=== PATIENT | male | born 1985 | race African-American/Black ===

== ENCOUNTER 2016-07-11 02:39 | Emergency (ER) | payer OTHER ==
[~2016-07-11] VITALS: Ht 180.3 cm; Wt 99.6 kg
[2016-07-11] MEDS ORDERED: LORAZEPAM 2 MG/ML 1 ML VIAL ONE (02:52)
[2016-07-11 03:21] LABS: ALT/SGPT 30 U/L (12-78); AST/SGOT 16 U/L (15-37); BLOOD UREA NITROGEN 9 mg/dl (7-18); BUN/CREATININE RATIO 6.3 (10-20); CARBON DIOXIDE 19 mmol/L (21-32); CHLORIDE 108 mmol/L (98-107); GLUCOSE 85 mg/dl (70-99); POTASSIUM 3.1 mmol/L (3.5-5.1); SODIUM 144 mmol/L (136-145)
[2016-07-11 03:32] LABS: ALKALINE PHOSPHATASE 73 U/L (45-117); THYROID STIMULATING HORMONE 0.753 uIu/ml (0.300-4.500)
[2016-07-11 03:36] LABS: ACETAMINOPHEN < 2 ug/ml (10-30)
[2016-07-11 03:43] LABS: BENZODIAZEPINE, URINE NEG (NEG); COCAINE,URINE POS (NEG); PHENCYCLIDINE, URINE NEG (NEG)
[2016-07-11 03:45] LABS: CKMB/CK RATIO 0.5 (0-3.0)
[2016-07-11 04:09] LABS: URINE APPEARANCE CLEAR (CLEAR); URINE BILIRUBIN NEG (NEG); URINE COLOR YELLOW; URINE NITRITE NEG (NEG); URINE SPECIFIC GRAVITY 1.003 (1.000-1.030); UROBILINOGEN NEG (NEG)
[2016-07-11] MEDS ORDERED: LORAZEPAM 2 MG/ML 1 ML VIAL IM STA (04:09)
[2016-07-11] MEDS ORDERED: HALOPERIDOL LACTATE 5 MG/ML 1 ML VIAL IM STA (04:09)
[2016-07-11 04:25] LABS: MANUAL MICROSCOPIC REQUIRED? NO; REVIEW REQ? NO
--- NOTE | 2016-07-11 04:27 | EMERGENCY ROOM VISIT NOTE ---
History Report prepared by Naga: Heather Daly Under the Supervision of: Dr. Jenna Lynne D.O. First contact with patient: 02:49 Chief Complaint: OVERDOSE (INTENTIONAL) Stated Complaint: OVERDOSE History of Present Illness The patient is a male who presents to the Emergency Room with complaints of an overdose that occurred prior to arrival. Per police, the patient was acting disorderly this evening and an [employer] van driver helper called police. As police started to approach the patient, the patient started walking towards them. The patient was told to stop and provide ID, but the patient started becoming more aggressive. The patient was tazed by police, but due to the thickness of his clothing, the prongs did not stick. Police were finally able to get the patient handcuffed and transported to the emergency department. Police note that they found a white substance and drug paraphernalia concerning for cocaine on the patient. The history is limited secondary to the patient's poor cooperation and intoxication. The patient received 2 mg of IM Ativan in the ambulance. Source of History: police History Limited By: poor cooperation, intoxication Onset: prior to arrival Position: other (global) Quality: other (overdose) Review of Systems The history is limited secondary to intoxication. Past Medical & Surgical Unobtainable secondary to intoxication. Family History Unobtainable secondary to intoxication. Social History Smoking Status: Unknown if Ever Smoked Alcohol Use: heavy Drug Use: cocaine Current/Historical Medications Unable to Obtain Active Prescriptions or Reported Meds Physical Exam Vital Signs Date Time Temp Pulse Resp B/P Pulse Ox O2 Delivery O2 Flow Rate FiO2 07/11/16 05:35 103 23 100 Room Air 07/11/16 05:33 106/67 07/11/16 05:05 98 19 94 07/11/16 05:00 132/89 07/11/16 04:35 101 20 93 07/11/16 04:30 103/63 07/11/16 04:20 105 20 93 Room Air 07/11/16 04:00 138/85 07/11/16 03:50 102 21 95 07/11/16 03:34 107 20 123/71 94 Room Air 07/11/16 03:34 123/71 07/11/16 03:30 181/115 07/11/16 03:20 119 26 07/11/16 03:15 122 15 07/11/16 03:03 142 07/11/16 03:00 159 27 112/90 07/11/16 03:00 138 30 112/90 100 Room Air 07/11/16 02:52 175/88 Physical Exam General: Extremely aggressive, threatening to harm staff. Screaming expletives. Spitting on staff. Attempting to bite staff. Diaphoretic. HEENT: Head - normocephalic and atraumatic Pupils are 4 mm and nonreactive. Nose - moist nasal mucosa without discharge. Mouth - moist buccal mucosa. Oropharynx is nonerythematous and there is no tonsillar exudate or edema noted. Neck: Supple; no JVD, nuchal rigidity, cervical lymphadenopathy. Heart: Tachycardic rate and regular rhythm. There is a normal S1 and S2 with no murmurs, clicks, or gallops appreciated. Lungs: Clear to auscultation bilaterally with no wheezes, rales, or rhonchi. Abdomen: Soft, completely nontender, nondistended, with good bowel sounds. There are no palpable pulsatile masses or hepatosplenomegaly. There is no guarding, rigidity, or rebound noted. Back: 2 prong jones on left low back from tazer. No active bleeding. Extremities: No evidence of cyanosis, clubbing, or edema. There are easily palpable peripheral pulses. Skin: warm and dry with good turgor and no rashes. , Medical Decision & Procedures Laboratory Results 07/11/16 02:52 Test 07/11/16 02:52 07/11/16 03:05 07/11/16 03:15 Anion Gap 17.0 mmol/L (3-11) Estimated GFR () 39.0 Estimated GFR (Non- 33.7 BUN/Creatinine Ratio 6.3 (10-20) Calcium Level 9.0 mg/dl (8.5-10.1) Total Bilirubin 0.3 mg/dl (0.2-1) Direct Bilirubin 0.1 mg/dl (0-0.2) Aspartate Amino Transf (AST/SGOT) 16 U/L (15-37) Alanine Aminotransferase (ALT/SGPT) 30 U/L (12-78) Alkaline Phosphatase 73 U/L (45-117) Total Creatine Kinase 474 U/L (39-308) Creatine Kinase MB 2.3 ng/ml (0.5-3.6) Creatine Kinase MB Ratio 0.5 (0-3.0) Troponin I < 0.015 ng/ml (0-0.045) Total Protein 8.3 gm/dl (6.4-8.2) Albumin 4.4 gm/dl (3.4-5.0) Thyroid Stimulating Hormone (TSH) 0.753 uIu/ml (0.300-4.500) Ethyl Alcohol mg/dL 193.0 mg/dl (0-3) Salicylates Level 2.8 mg/dl (2.8-20) Acetaminophen Level < 2 ug/ml (10-30) Urine Color YELLOW Urine Appearance CLEAR (CLEAR) Urine pH 6.0 (4.5-7.5) Urine Specific [place] 1.003 (1.000-1.030) Urine Protein NEG (NEG) Urine Glucose (UA) NEG (NEG) Urine Ketones NEG (NEG) Urine Occult Blood NEG (NEG) Urine Nitrite NEG (NEG) Urine Bilirubin NEG (NEG) Urine Urobilinogen NEG (NEG) Urine Leukocyte Esterase NEG (NEG) Urine Opiates Screen NEG (NEG) Urine Methadone, Qualitative NEG (NEG) Urine Barbiturates NEG (NEG) Urine Phencyclidine (PCP) Level NEG (NEG) Ur Amphetamine/Methamphetamine NEG (NEG) MDMA (Ecstasy) Screen NEG (NEG) Urine Benzodiazepines Screen NEG (NEG) Urine Cocaine Metabolite POS (NEG) Urine Marijuana (THC) NEG (NEG) Laboratory results per my review. Medications Administered Medications (Trade) Dose Ordered Sig/Clau Route Start Time Stop Time Status Last Admin Dose Admin Lorazepam (Ativan Inj) 2 mg STK-MED ONCE .ROUTE 07/11/16 02:52 07/11/16 02:55 DC 07/11/16 02:52 2 MG Haloperidol Lactate (Haldol Inj) 10 mg NOW STAT IM 07/11/16 04:09 07/11/16 04:10 DC 07/11/16 02:40 10 MG Lorazepam (Ativan Inj) 2 mg NOW STAT IM 07/11/16 04:09 07/11/16 04:10 DC 07/11/16 02:40 2 MG Procedure The patient was treated with Ativan Inj 2 mg .IM, Ativan Inj 2 mg IM, Haldol Inj 10 mg IM. ED Course 0241: Past medical records reviewed. The patient was evaluated in room A2. A complete history and physical exam was performed. The patient was being restrained by police and security staff. He was trying to bite one security guards and was screaming expletives. 0246: The patient was given 10 mg of Haldol IM and 2 mg of Ativan IM at this time. 0255: I reevaluated the patient at this time and the patient and he was still very aggressive. He was attempting to spit at me during my physical exam. He was given an additional 2 mg of Ativan IM. 0440: I reevaluated he patient and he is sound asleep and 204 limbs her out of restraints. He is hemodynamically stable. The patient will be discharged to the police when he is more sober around 0700. 0545: I reevaluated the patient and he is resting and hemodynamically stable. 0630: The patient will be discharged with police Medical Decision The patient is a 31 year old male who presents to the ED with an overdose. Differential diagnosis includes drug overdose, alcohol intoxication, excited delirium, hypoglycemia Lab interpretation: Potassium 3.1, BUN 9, Creatanine1.5, total Ck 474, CKMB 2.3 , negative troponin, normal TSH, alcohol 193, urine tox screen positive for cocaine, salicylate level 2.8, Tylenol level less than 2. This is a 31-year-old male patient presents to the emergency department in an altered, belligerent and aggressive state. He was found to be under the influence of alcohol and cocaine. He was observing the cardiac cath rn and pulse oximeter. He did require restraints with locked limbs and chemical restraints. The patient remained hemodynamically stable. The police are waiting for the patient to be discharged as they will take him into custody. The patient was told that his potassium level was slightly low and that he needs to take foods high in potassium. Impression Primary Impression: Alcohol overdose Additional Impressions: Cocaine abuse Hypokalemia Critical Care I have personally spent greater than 60 minutes of critical care time in the direct management of this patient. This includes bedside care, interpretation of diagnostic studies, and testing, discussion with consultants, patient, and family members, and other required patient management activities. This 60 minutes is in excess of all separately billable procedures. Scribe Attestation The scribe's documentation has been prepared under my direction and personally reviewed by me in its entirety. I confirm that the note above accurately reflects all work, treatment, procedures, and medical decision making performed by me. Departure Information Dispostion Other (Police) Prescriptions Unable to Obtain Active Prescriptions or Reported Meds Forms HOME CARE DOCUMENTATION FORM, IMPORTANT VISIT INFORMATION, WORK / SCHOOL INSTRUCTIONS Patient Instructions Cocaine Effects, Cocaine Get Help, ED Alcohol Intoxication, My [facility] Additional Instructions Avoid alcohol and cocaine abuse Keep yourself well-hydrated Takew foods high in potassium Problem Qualifiers
[2016-07-11 06:50] VITALS: BP 111/66; PULSE 91; O2SAT 96
[2016-07-14 12:28] LABS: COCAINE, URINE 7890 NG/ML (CUTOFF=100)
== END 2016-07-11 06:50 | disposition home or self-care (01) ==
LOC: EDBD 02:39 → C.EDA 02:47
DX: T51.0X1A Toxic effect of ethanol, accidental (unintentional), initial encounter (principal); X58.XXXA Exposure to other specified factors, initial encounter; F14.10 Cocaine abuse, uncomplicated; E87.6 Hypokalemia; Z78.1 Physical restraint status